=== PATIENT | male | born 1980 | race Caucasian/White ===

== ENCOUNTER 2018-01-03 19:31 | Emergency (ER) | payer BC, OTHER ==
[2018-01-03 19:42] VITALS: BP 114/54; PULSE 58; TEMP 98.1; BMI 26.4
--- NOTE | 2018-01-03 19:56 | PDOC ---
History of Present Illness - General Chief Complaint: Pain, Acute Stated Complaint: KNEE INJURY Time Seen by Provider: 01/03/18 19:42 History Source: Patient - History of Present Illness Initial Comments: 01/03/18 20:10 37 year old male YFD c/o right knee pain, reports that he felt a " Pop" now unable to ROM and weightbear or leg raise since the injury. history of left patella tendon rupture 01/03/18 21:20 Past History - Past Medical History Allergies/Adverse Reactions: Allergies Allergy/AdvReac Type Severity Reaction Status Date / Time No Known Allergies Allergy Verified 01/03/18 20:01 Home Medications: Ambulatory Orders Ibuprofen 800 mg PO QID PRN #20 tablet 01/03/18 Oxycodone HCl/Acetaminophen [Percocet 5-325 mg Tablet] 1 tab PO Q6H PRN #10 tablet MDD 4 01/03/18 - Surgical History Orthopedic Surgery: Yes (left knee surgery) - Suicide/Smoking/Psychosocial Hx Smoking Status: No Smoking History: Never smoked Have you smoked in the past 12 months: No Number of Cigarettes Smoked Daily: 0 Information on smoking cessation initiated: No Hx Alcohol Use: No Drug/Substance Use Hx: No Review of Systems - Review of Systems Able to Perform ROS?: Yes Is the patient limited Lithuanian proficient: No Constitutional: Yes: Symptoms Reported HEENTM: No: Symptoms Reported, See HPI, Eye Pain, Blurred Vision, Tearing, Recent change in vision, Double Vision, Cataracts, Ear Pain, Ocular Prothesis, Ear Discharge, Nose Pain, Nose Congestion, Tinnitus, Nose Bleeding, Hearing Loss , Throat Pain, Throat Swelling, Mouth Pain, Dental Problems, Difficulty Swallowing, Mouth Swelling, Other Respiratory: No: Symptoms reported, See HPI, Cough, Orthopnea, Shortness of Breath, SOB with Exertion, SOB at Rest, Stridor, Wheezing, Productive cough, Hemoptysis, Other Musculoskeletal: Yes: Other (right knee pain) *Physical Exam - Vital Signs Last Vital Signs Temp Pulse Resp BP Pulse Ox 98.1 F 58 L 18 114/54 97 01/03/18 19:37 01/03/18 19:37 01/03/18 19:37 01/03/18 19:37 01/03/18 19:37 - Physical Exam General Appearance: Yes: Appropriately Dressed Extremity: positive: Normal Capillary Refill, Normal Inspection, Other (unable to leg raise, patella palpated ventral and distal to upper thigh) Integumentary: positive: Normal Color, Dry, Warm Neurologic: positive: Fully Oriented, Alert Progress Note - Progress Note Progress Note: A: Right knee pain and injury. P: xray pain control *DC/Admit/Observation/Transfer Diagnosis at time of Disposition: Right knee pain Qualifiers: Chronicity: acute Qualified Code(s): M25.561 - Pain in right knee Patellar tendon rupture Qualifiers: Encounter type: initial encounter Laterality: right Qualified Code(s): S86.811A - Strain of other muscle(s) and tendon(s) at lower leg level, right leg , initial encounter - Discharge Dispostion Disposition: HOME Condition at time of disposition: Fair - Prescriptions Prescriptions: Ibuprofen 800 mg PO QID PRN #20 tablet PRN Reason: Pain Level 4 - 6 Oxycodone HCl/Acetaminophen [Percocet 5-325 mg Tablet] 1 tab PO Q6H PRN #10 tablet MDD 4 PRN Reason: Moderate Pain - Referrals Referrals: Sincere Benjamin MD [Staff Physician] - Call tomorrow - Patient Instructions Printed Discharge Instructions: DI for Patellar Dislocation Additional Instructions: please follow up with orthopedic as soon as possible. keep knee immobilizer on. use crutches. rest, ICE elevate. - Post Discharge Activity Forms/Work/School Notes: Back to Work
[2018-01-03] MEDS ORDERED: IBUPROFEN 400 MG TABLET (FP) PO ONE ×2 (20:01→20:12)
== END 2018-01-03 21:38 | disposition home or self-care (01) ==
LOC: JER 19:31
PROC: 2W3QXYZ Immobilization of Right Lower Leg using Other Device (ICD-10-PCS; principal; 2018-01-03)
DX: S86.811A Strain of other muscle(s) and tendon(s) at lower leg level, right leg, initial encounter (principal); W18.39XA Other fall on same level, initial encounter; Y93.64 Activity, baseball; Y92.320 Baseball field as the place of occurrence of the external cause; Y99.8 Other external cause status
CPT/HCPCS: 73564-TC-RT-FY; 99282-25

== ENCOUNTER 2021-11-03 20:18 | Emergency (ER) | payer OTHER ==
[2021-11-03 20:24] VITALS: BP 112/70; PULSE 71; TEMP 98.1; BMI 26.4
== END 2021-11-03 22:16 | disposition home or self-care (01) ==
LOC: JERFT 20:18
DX: S46.911A Strain of unspecified muscle, fascia and tendon at shoulder and upper arm level, right arm, initial encounter (principal); X50.0XXA Overexertion from strenuous movement or load, initial encounter
CPT/HCPCS: 99282-25